=== PATIENT | female | born 1985 | race Caucasian/White ===

== ENCOUNTER 2016-08-21 18:00 | Emergency (ER) | payer OTHER ==
--- NOTE | 2016-08-21 19:33 | ED ORDER SUMMARY ---
..... Patient: YAIR ISABEL OrderSheet [facility]ly [facility] VisitID: [id number] [address] [place] [address] 30y, F Registration Date/Time: 08/21/2016 ORDER SHEET Weight: 99.7 kg (stated) Allergies: No Known Drug Allergy GENERAL ORDERS: GC/Chlamydia (Cervix) (cervix) Urgent (18:37 08/21/2016 HBivens A.R.N.P.) (Ack 18:43 KHoerner) (19:00 MWinterer R.N.) Wet Prep (Cervix) (cervix) Urgent (18:37 08/21/2016 HBivens A.R.N.P.) (Ack 18:43 KHoerner) (19:00 MWinterer R.N.) UA-Culture if indicated Urgent (18:48 08/21/2016 HBivens A.R.N.P.) (Ack 18:53 KHoerner) (19:00 MWinterer R.N.) Urine Urgent (18:48 08/21/2016 HBivens A.R.N.P.) (Ack 18:53 KHoerner) (19:00 MWinterer R.N.) MEDICATION ORDERS: Ceftriaxone IM 250 mg (NOW) (18:38 08/21/2016 HBivens A.R.N.P.) (Ack 18:45 MWinterer R.N.) (19:00 MWinterer R.N.) IV FLUIDS: ORDER SHEET NOTES: [Electronically signed by Farzana Thompson R.N. (19:50 08/21/2016)] [Electronically signed by Iram Owen A.R.N.P. (20:19 08/21/2016)] [Electronically locked/signed by Farzana Thompson R.N. (19:50 08/21/2016)]
--- NOTE | 2016-08-21 19:33 | ED CLINICAL REPORT ---
Clinical Report - Physicians/Mid Levels [facility] [address] [place] [address] 08/21/2016 18:02 Patient: YAIR ISAEBL Time Seen: 18:26; initial patient contact, initial documentation, patient care assumed. Arrived- By private vehicle. Historian- patient. HISTORY OF PRESENT ILLNESS Chief Complaint: POSSIBLY EXPOSED TO SEXUALLY TRANSMITTED DISEASE. This started about 3 days ago. The symptoms are described as mild. Modifying factors. Not worsened by anything. Not relieved by anything. No abdominal pain, pelvic pain, vaginal pain, low back pain or flank pain. No irregular periods, abnormal bleeding, vaginal discharge, vaginal itching or genital lesions. No pain with urination, urinary frequency, urgency of urination or hematuria. Sexually active- unprotected sex and heterosexual. The patient has had possible exposure to sexually transmitted disease. control measures utilized. (says her partner told her Sat night that he was with someone else Saturday night, so she wants full exam, pelvic, meds and testing). Denies current . Similar symptoms previously: None. Recent medical care: Not recently seen/assessed. REVIEW OF SYSTEMS No fever. All systems otherwise negative, except as recorded above. PAST HISTORY See nurses notes. ( SURGERY HX: Cholecystectomy.). SOCIAL HISTORY Light tobacco smoker. No alcohol use or drug use. No recent travel. Is a local resident. FAMILY HISTORY Negative. ADDITIONAL NOTES The nursing notes have been reviewed with agreement regarding the chief complaint, HPI, ROS, PMH and patient medications and allergies. PHYSICAL EXAM Vital Signs: 08/21/2016 18:14 BP: 123/85. HR: 99. RR: 20. O2 saturation: 98%. Temp: 98.2 F. Pain level now: 0/10. Have been reviewed as normal and appear to be correct. Appearance: Alert. Oriented X3. No acute distress. (pt appears under the influence). HEENT: Normal external inspection. ENT: Pharynx normal. Neck: Neck supple. CVS: Heart sounds normal. Respiratory: No respiratory distress. Breath sounds normal. Chest nontender. Abdomen: Soft and nontender. Back: Normal external inspection. : External inspection normal. Speculum exam normal. Bimanual exam normal. Skin: Skin warm and dry. Normal skin color. No rash. Normal skin turgor. Extremities: Extremities nontender. No lower extremity edema. Neuro: Oriented X 3. Mood/affect normal. No motor deficit. No sensory deficit. LABS, X-RAYS, AND EKG Laboratory Tests: UA-Culture if indicated: (ALLAN: 08/21/2016 18:29) ( [facility] 08/21/2016 19:18) Final results Test Result Flag Units (Reference) URINE COLOR YELLOW URINE APPEARANCE TURBID URINE GLUCOSE NEGATIVE (NEGATIVE) URINE BILIRUBIN NEGATIVE (NEGATIVE) URINE KETONE NEGATIVE (NEGATIVE) URINE SPECIFIC GRAVITY >= 1.030 (1.010-1.030) URINE PH 6.0 (5.0-8.0) URINE PROTEIN TRACE (NEGATIVE) URINE UROBILINOGEN 0.2 EU/dL (0.2-1.0) URINE NITRITE NEGATIVE (NEGATIVE) URINE BLOOD NEGATIVE (NEGATIVE) URINE LEUK ESTERASE NEGATIVE (NEGATIVE) URINE RBC NONE SEEN rbc/hpf (0-1) URINE WBC 1-3 wbc/hpf (0-1) URINE EPITHELIAL CELLS >15 EPI/hpf (0-5) URINE BACTERIA FEW (1+) (NONE SEEN) HYALINE CAST 0-1/LPF URINE COMMENT CULT NOT INDICATED URINE CULTURES ARE SET-UP BASED ON THE FOLLOWING CRITERIA:POSITIVE NITRITEPOSITIVE LEUKOCYTE ESTERASEGREATER THAN 10 WHITE BLOOD CELLSMODERATE (2+) OR GREATER BACTERIA Urine: (ALLAN: 08/21/2016 18:29) ( [facility] 08/21/2016 19:06) Final results Test Result Flag Units (Reference) URINE NEGATIVE Wet Prep: (ALLAN: 08/21/2016 18:50) ( [facility] 08/21/2016 19:23) Final results SPECIMEN DESCRIPTION: CERVIX Test Result Flag Units (Reference) WET MOUNT CLUE CELLS:: NONE EPITHELIAL CELLS: FEW -- SOURCE?: CERVIX WHITE BLOOD CELLS: NONE TRICHOMONAS:: NONE -- YEAST:: NONE . PROGRESS AND PROCEDURES Patient counseled in person regarding the patient's stable condition and diagnosis. Differential Diagnosis: Other possible considerations: std - chlamydia, gonorrhea, trich, bv, yeast. Above considerations are based on history and physical exam. Differential diagnosis was discussed with patient. Disposition: Discharged home in good and improved condition (19:33). Condition: good and stable. CLINICAL IMPRESSION (STD Exposure). INSTRUCTIONS No sexual contact until symptoms resolve. Warnings: GENERAL WARNINGS: Return or contact your physician immediately if your condition worsens or changes unexpectedly, if not improving as expected, or if other problems arise. Specifically return if problem worsens. Prescription Medications: Zithromax 500 mg tablets: take 2 orally initially. Total course 1 day. No refills. Follow-up: Follow up with your doctor in about three days as needed. Call for an appointment. Summary of care provided to patient. Understanding of the discharge instructions verbalized by patient. (Electronically signed by Iram Owen A.R.N.P. 08/21/2016 20:19)
--- NOTE | 2016-08-21 19:33 | ED ORDER SUMMARY ---
..... Patient: YAIR ISABEL OrderSheet [facility] VisitID: [id number] [address] [place] [address] 30y, F Registration Date/Time: 08/21/2016 ORDER SHEET Weight: 99.7 kg (stated) Allergies: No Known Drug Allergy GENERAL ORDERS: GC/Chlamydia (Cervix) (cervix) Urgent (18:37 08/21/2016 HBivens A.R.N.P.) (Ack 18:43 KHoerner) (19:00 MWinterer R.N.) Wet Prep (Cervix) (cervix) Urgent (18:37 08/21/2016 HBivens A.R.N.P.) (Ack 18:43 KHoerner) (19:00 MWinterer R.N.) UA-Culture if indicated Urgent (18:48 08/21/2016 HBivens A.R.N.P.) (Ack 18:53 KHoerner) (19:00 MWinterer R.N.) Urine Urgent (18:48 08/21/2016 HBivens A.R.N.P.) (Ack 18:53 KHoerner) (19:00 MWinterer R.N.) MEDICATION ORDERS: Ceftriaxone IM 250 mg (NOW) (18:38 08/21/2016 HBivens A.R.N.P.) (Ack 18:45 MWinterer R.N.) (19:00 MWinterer R.N.) IV FLUIDS: ORDER SHEET NOTES: [Electronically signed by Farzana Thompson R.N. (19:50 08/21/2016)] [Electronically signed by Iram Owen A.R.N.P. (20:19 08/21/2016)] [Electronically locked/signed by Farzana Thompson R.N. (19:50 08/21/2016)]
--- NOTE | 2016-08-21 19:33 | ED NURSING NOTES ---
Clinical Report - Nurses [facility] [address] [place] [address] 08/21/2016 18:02 Patient: YAIR ISABEL TRIAGE Acuity: LEVEL 4. Chief Complaint: VAGINAL DISCHARGE, GENITAL ITCHING/IRRITATION and STD EXPOSURE. Alert. No acute distress. SEPSIS SCREEN: Sepsis Screen. Negative (no infection suspected/documented). --18:20 Daylin Mckeon R.N. 18:14 08/21/16. BP: 123/85. HR: 99. RR: 20. O2 saturation: 98% on room air. Temp: 98.2 F (oral). Pain level now: 0/10. --18:20 Daylin Mckeon R.N. Weight: 99.7 kg stated. Height/Length: 65 inches Per Patient. BMI: 36.6. --18:15 Daylin Mckeon R.N. Medications None. --18:15 Daylin Mckeon R.N. Medication/allergy information source: the patient. --18:20 Daylin Mckeon R.N. Allergies No Known Drug Allergy. --18:15 Daylin Mckeon R.N. History Arrived by private vehicle. Historian: patient. Accompanied by friend. Primary physician (Deja). Onset. (4 days ago). Treatment DEAN OF ADMISSIONS: None. PAST MEDICAL HX: Immunizations: status is unknown. Last normal menstrual period- July 28, 2016. Sexual history - sexually active. Uses control pills. SOCIAL HX: Current every day light tobacco smoker (cigarette)- less than 1/2 a pack per day. No alcohol use or drug use. FALL RISK ASSESSMENT: Fall risk assessment completed. No fall risk identified. NUTRITIONAL RISK ASSESSMENT: The nutritional risk assessment revealed no deficiencies. FUNCTIONAL ASSESSMENT: Functional assessment: no impairments noted. LEARNING NEEDS ASSESSMENT: The learning needs assessment revealed no barriers. SKIN INTEGRITY ASSESSMENT: Skin integrity risk assessment completed. No skin integrity risk identified. --18:20 Daylin Mckeon R.N. ADDITIONAL SURGERIES: Cholecystectomy. --18:16 Daylin Mckeon R.N. Assessment GENERAL / NEURO / PSYCH: Alert. Oriented X 4. Appears in no acute distress. Patient appears calm and cooperative. RESPIRATORY: Respirations not labored. CVS: Capillary refill less than 2 seconds. GI / : Abdomen soft and nontender. SKIN: Mucous membranes are pink. Skin is warm and dry. --18:20 Daylin Mckeon R.N. Interventions ID band on patient. To treatment room. --18:20 Daylin Mckeon R.N. PHYSICAL ASSESSMENT Ambulatory to room. GENERAL / NEURO / PSYCH: Alert. Oriented X 4. Appears in no acute distress. HEENT: Pupils equal, round and reactive to light. No facial asymmetry noted. Mucous membranes are pink. RESPIRATORY: Respirations not labored. CVS: Capillary refill less than 2 seconds. Pulses within normal limits. GI / : Abdomen soft and nontender. SKIN: Skin intact. Skin is warm and dry. Normal skin turgor. --18:24 Daylin Mckeon R.N. NURSING PROGRESS NOTES 18:20 08/21/16. Patient gowned. Two patient identifiers checked. Call light placed in reach. Side rails up x 1. Bed placed in lowest position. Brakes of bed on. Patient ready for evaluation- ED physician and NASCAR RACER notified. --18:20 Daylin Mckeon R.N. 19:04 08/21/16. Care transferred and report given (JERAMIE Dobbins RN). --19:04 Daylin Mckeon R.N. DISPOSITION / DISCHARGE 19:00 08/21/2016 Ceftriaxone IM 250 mg given. Given in the left gluteus dariusz. Allergies verified and confirmed 5 rights. --19:00 Daylin Mckeon R.N. 19:38. Condition at departure: unchanged. No learning barriers present. Discharge instructions provided and reviewed with the patient. Reviewed medication(s) side effects, precautions, dosing and course information. Prescription(s) given to the patient. Patient verbalized understanding. Written instructions provided in Greek. The patient was discharged home and accompanied by computer networker. She left the Emergency Department ambulatory and via private vehicle. Clinical Informatics Spec driving. Medication list reviewed and validated. --19:50 Farzana Thompson R.N. 19:49 08/21/16. BP: deferred. HR: deferred. RR: deferred. O2 saturation: deferred. Temp: deferred. Pain level now deferred. Additional comments: Patient refusal. . --19:50 Farzana Thompson R.N. Locked/Released at 08/21/2016 19:50 by Farzana Thompson R.N.
--- NOTE | 2016-08-21 19:33 | ED NURSING NOTES ---
Clinical Report - Nurses [facility] [address] [place] [address] 08/21/2016 18:02 Patient: YAIR ISABEL TRIAGE Acuity: LEVEL 4. Chief Complaint: VAGINAL DISCHARGE, GENITAL ITCHING/IRRITATION and STD EXPOSURE. Alert. No acute distress. SEPSIS SCREEN: Sepsis Screen. Negative (no infection suspected/documented). --18:20 Daylin Mckeon R.N. 18:14 08/21/16. BP: 123/85. HR: 99. RR: 20. O2 saturation: 98% on room air. Temp: 98.2 F (oral). Pain level now: 0/10. --18:20 Daylin Mckeon R.N. Weight: 99.7 kg stated. Height/Length: 65 inches Per Patient. BMI: 36.6. --18:15 Daylin Mckeon R.N. Medications None. --18:15 Daylin Mckeon R.N. Medication/allergy information source: the patient. --18:20 Daylin Mckeon R.N. Allergies No Known Drug Allergy. --18:15 Daylin Mckeon R.N. History Arrived by private vehicle. Historian: patient. Accompanied by friend. Primary physician (Deja). Onset. (4 days ago). Treatment INTERNET DEVELOPER: None. PAST MEDICAL HX: Immunizations: status is unknown. Last normal menstrual period- July 28, 2016. Sexual history - sexually active. Uses control pills. SOCIAL HX: Current every day light tobacco smoker (cigarette)- less than 1/2 a pack per day. No alcohol use or drug use. FALL RISK ASSESSMENT: Fall risk assessment completed. No fall risk identified. NUTRITIONAL RISK ASSESSMENT: The nutritional risk assessment revealed no deficiencies. FUNCTIONAL ASSESSMENT: Functional assessment: no impairments noted. LEARNING NEEDS ASSESSMENT: The learning needs assessment revealed no barriers. SKIN INTEGRITY ASSESSMENT: Skin integrity risk assessment completed. No skin integrity risk identified. --18:20 Daylin Mckeon R.N. ADDITIONAL SURGERIES: Cholecystectomy. --18:16 Daylin Mckeon R.N. Assessment GENERAL / NEURO / PSYCH: Alert. Oriented X 4. Appears in no acute distress. Patient appears calm and cooperative. RESPIRATORY: Respirations not labored. CVS: Capillary refill less than 2 seconds. GI / : Abdomen soft and nontender. SKIN: Mucous membranes are pink. Skin is warm and dry. --18:20 Daylin Mckeon R.N. Interventions ID band on patient. To treatment room. --18:20 Daylin Mckeon R.N. PHYSICAL ASSESSMENT Ambulatory to room. GENERAL / NEURO / PSYCH: Alert. Oriented X 4. Appears in no acute distress. HEENT: Pupils equal, round and reactive to light. No facial asymmetry noted. Mucous membranes are pink. RESPIRATORY: Respirations not labored. CVS: Capillary refill less than 2 seconds. Pulses within normal limits. GI / : Abdomen soft and nontender. SKIN: Skin intact. Skin is warm and dry. Normal skin turgor. --18:24 Daylin Mckeon R.N. NURSING PROGRESS NOTES 18:20 08/21/16. Patient gowned. Two patient identifiers checked. Call light placed in reach. Side rails up x 1. Bed placed in lowest position. Brakes of bed on. Patient ready for evaluation- ED physician and CENTER DIRECTOR notified. --18:20 Daylin Mckeon R.N. 19:04 08/21/16. Care transferred and report given (JERAMIE Dobbins RN). --19:04 Daylin Mckeon R.N. DISPOSITION / DISCHARGE 19:00 08/21/2016 Ceftriaxone IM 250 mg given. Given in the left gluteus dariusz. Allergies verified and confirmed 5 rights. --19:00 Daylin Mckeon R.N. 19:38. Condition at departure: unchanged. No learning barriers present. Discharge instructions provided and reviewed with the patient. Reviewed medication(s) side effects, precautions, dosing and course information. Prescription(s) given to the patient. Patient verbalized understanding. Written instructions provided in Yoruba. The patient was discharged home and accompanied by snath handle assembler. She left the Emergency Department ambulatory and via private vehicle. Glass Enamel Mixer driving. Medication list reviewed and validated. --19:50 Farzana Thompson R.N. 19:49 08/21/16. BP: deferred. HR: deferred. RR: deferred. O2 saturation: deferred. Temp: deferred. Pain level now deferred. Additional comments: Patient refusal. . --19:50 Farzana Thompson R.N. Locked/Released at 08/21/2016 19:50 by Farzana Thompson R.N.
--- NOTE | 2016-08-21 20:20 | ED DISCHARGE INSTRUCTIONS ---
Patient: YAIR ISABEL General Instructions [facility] VisitID: [id number] [place] [address] 30y, F Registration Date/Time: 08/21/2016 (STD Exposure). INSTRUCTIONS No sexual contact until symptoms resolve. Warnings: GENERAL WARNINGS: Return or contact your physician immediately if your condition worsens or changes unexpectedly, if not improving as expected, or if other problems arise. Specifically return if problem worsens. Prescription Medications: Zithromax 500 mg tablets: take 2 orally initially. Total course 1 day. No refills. Follow-up: Follow up with your doctor in about three days as needed. Call for an appointment. Summary of care provided to patient. Understanding of the discharge instructions verbalized by patient. ADDITIONAL INFORMATION Azithromycin Oral tablet What is this medicine? AZITHROMYCIN (az ith mireya MYE sin) is a macrolide antibiotic. It is used to treat or prevent certain kinds of bacterial infections. It will not work for colds, flu, or other viral infections. How should I use this medicine? Take this medicine by mouth with a full glass of water. Follow the directions on the prescription label. The tablets can be taken with food or on an empty stomach. If the medicine upsets your stomach, take it with food. Take your medicine at regular intervals. Do not take your medicine more often than directed. Take all of your medicine as directed even if you think your are better. Do not skip doses or stop your medicine early. Talk to your shuttle van driver regarding the use of this medicine in children. Special care may be needed. What side effects may I notice from receiving this medicine? Side effects that you should report to your doctor or health customer care manager as soon as possible: allergic reactions like skin rash, itching or hives, swelling of the face, lips, or tongue confusion, nightmares or hallucinations dark urine difficulty breathing hearing loss irregular heartbeat or chest pain pain or difficulty passing urine redness, blistering, peeling or loosening of the skin, including inside the mouth white patches or sores in the mouth yellowing of the eyes or skin Side effects that usually do not require medical attention (report to your doctor or health customer care manager if they continue or are bothersome): diarrhea dizziness, drowsiness headache stomach upset or vomiting tooth discoloration vaginal irritation What may interact with this medicine? Do not take this medicine with any of the following medications: lincomycin This medicine may also interact with the following medications: amiodarone antacids cyclosporine digoxin magnesium nelfinavir phenytoin warfarin What if I miss a dose? If you miss a dose, take it as soon as you can. If it is almost time for your next dose, take only that dose. Do not take double or extra doses. Where should I keep my medicine? Keep out of the reach of children. Store at room temperature between 15 and 30 degrees C (59 and 86 degrees F). Throw away any unused medicine after the expiration date. What should I tell my health care provider before I take this medicine? They need to know if you have any of these conditions: kidney disease liver disease irregular heartbeat or heart disease an unusual or allergic reaction to azithromycin, erythromycin, other macrolide antibiotics, foods, dyes, or preservatives or trying to get breast-feeding What should I watch for while using this medicine? Tell your doctor or health customer care manager if your symptoms do not improve. Do not treat diarrhea with over the counter products. Contact your doctor if you have diarrhea that lasts more than 2 days or if it is severe and watery. This medicine can make you more sensitive to the sun. Keep out of the sun. If you cannot avoid being in the sun, wear protective clothing and use sunscreen. Do not use sun lamps or tanning beds/booths. You have been given the following additional information: Azithromycin Oral tablet (Electronically signed by Iram Owen A.R.N.P. 08/21/2016 20:19)
--- NOTE | 2016-08-21 20:20 | ED MAR SUMMARY ---
..... Medication Administration Record [facility] [address] [place] [address] Patient: YAIR ISABEL Visit ID: [id number] 30y, F Weight: 99.7 kg Height/Length: 65 in BMI: 36.6 ALLERGIES: No Known Drug Allergy Given 19:00 08/21/2016 Daylin Mckeon R.N. Medication Administered: CEFTRIAXONE [IM], Dose: 250 mg IM. Medication Ordered: Ceftriaxone IM 250 mg (NOW).
--- NOTE | 2016-08-21 20:20 | ED MED RECONCILIATION SUMMARY ---
Patient: YAIR ISABEL Medication Reconciliation Report [facility] VisitID: [id number] [address] [place] [address] 30y, F Registration Date/Time: 08/21/2016 Weight: 99.7 kg Height/Length: 65 in. BMI: 36.6 ALLERGIES: No Known Drug Allergy The patient's Home Medications are listed below: NONE. The source(s) of the original Home Medication information: patient The following Medications were given to the patient in the Emergency Department: Ceftriaxone [IM] IM 250 mg, administered: 08/21/2016 7:00:00 PM The following Medications were prescribed to the patient: Zithromax 500 mg tablets: take 2 orally initially. Total course 1 day. No refills. -- Iram Owen A.R.N.P.
--- NOTE | 2016-08-21 20:20 | ED MAR SUMMARY ---
..... Medication Administration Record [facility] [address] [place] [address] Patient: YAIR ISABEL Visit ID: [id number] 30y, F Weight: 99.7 kg Height/Length: 65 in BMI: 36.6 ALLERGIES: No Known Drug Allergy Given 19:00 08/21/2016 Daylin Mckeon R.N. Medication Administered: CEFTRIAXONE [IM], Dose: 250 mg IM. Medication Ordered: Ceftriaxone IM 250 mg (NOW).
--- NOTE | 2016-08-21 20:20 | ED DISCHARGE INSTRUCTIONS ---
Patient: YAIR ISABEL General Instructions [facility] VisitID: [id number] [place] [address] 30y, F Registration Date/Time: 08/21/2016 (STD Exposure). INSTRUCTIONS No sexual contact until symptoms resolve. Warnings: GENERAL WARNINGS: Return or contact your physician immediately if your condition worsens or changes unexpectedly, if not improving as expected, or if other problems arise. Specifically return if problem worsens. Prescription Medications: Zithromax 500 mg tablets: take 2 orally initially. Total course 1 day. No refills. Follow-up: Follow up with your doctor in about three days as needed. Call for an appointment. Summary of care provided to patient. Understanding of the discharge instructions verbalized by patient. ADDITIONAL INFORMATION Azithromycin Oral tablet What is this medicine? AZITHROMYCIN (az ith mireya MYE sin) is a macrolide antibiotic. It is used to treat or prevent certain kinds of bacterial infections. It will not work for colds, flu, or other viral infections. How should I use this medicine? Take this medicine by mouth with a full glass of water. Follow the directions on the prescription label. The tablets can be taken with food or on an empty stomach. If the medicine upsets your stomach, take it with food. Take your medicine at regular intervals. Do not take your medicine more often than directed. Take all of your medicine as directed even if you think your are better. Do not skip doses or stop your medicine early. Talk to your fire behavior analyst regarding the use of this medicine in children. Special care may be needed. What side effects may I notice from receiving this medicine? Side effects that you should report to your doctor or health care management assistant as soon as possible: allergic reactions like skin rash, itching or hives, swelling of the face, lips, or tongue confusion, nightmares or hallucinations dark urine difficulty breathing hearing loss irregular heartbeat or chest pain pain or difficulty passing urine redness, blistering, peeling or loosening of the skin, including inside the mouth white patches or sores in the mouth yellowing of the eyes or skin Side effects that usually do not require medical attention (report to your doctor or health care management assistant if they continue or are bothersome): diarrhea dizziness, drowsiness headache stomach upset or vomiting tooth discoloration vaginal irritation What may interact with this medicine? Do not take this medicine with any of the following medications: lincomycin This medicine may also interact with the following medications: amiodarone antacids cyclosporine digoxin magnesium nelfinavir phenytoin warfarin What if I miss a dose? If you miss a dose, take it as soon as you can. If it is almost time for your next dose, take only that dose. Do not take double or extra doses. Where should I keep my medicine? Keep out of the reach of children. Store at room temperature between 15 and 30 degrees C (59 and 86 degrees F). Throw away any unused medicine after the expiration date. What should I tell my health care provider before I take this medicine? They need to know if you have any of these conditions: kidney disease liver disease irregular heartbeat or heart disease an unusual or allergic reaction to azithromycin, erythromycin, other macrolide antibiotics, foods, dyes, or preservatives or trying to get breast-feeding What should I watch for while using this medicine? Tell your doctor or health care management assistant if your symptoms do not improve. Do not treat diarrhea with over the counter products. Contact your doctor if you have diarrhea that lasts more than 2 days or if it is severe and watery. This medicine can make you more sensitive to the sun. Keep out of the sun. If you cannot avoid being in the sun, wear protective clothing and use sunscreen. Do not use sun lamps or tanning beds/booths. You have been given the following additional information: Azithromycin Oral tablet (Electronically signed by Iram Owen A.R.N.P. 08/21/2016 20:19)
--- NOTE | 2016-08-21 20:20 | ED MED RECONCILIATION SUMMARY ---
Patient: YAIR ISABEL Medication Reconciliation Report [facility] VisitID: [id number] [address] [place] [address] 30y, F Registration Date/Time: 08/21/2016 Weight: 99.7 kg Height/Length: 65 in. BMI: 36.6 ALLERGIES: No Known Drug Allergy The patient's Home Medications are listed below: NONE. The source(s) of the original Home Medication information: patient The following Medications were given to the patient in the Emergency Department: Ceftriaxone [IM] IM 250 mg, administered: 08/21/2016 7:00:00 PM The following Medications were prescribed to the patient: Zithromax 500 mg tablets: take 2 orally initially. Total course 1 day. No refills. -- Iram Owen A.R.N.P.
== END 2016-08-21 19:38 | disposition home or self-care (01) ==
LOC: ED SRH 18:00
DX: Z20.2 Contact with and (suspected) exposure to infections with a predominantly sexual mode of transmission (principal); Z72.0 Tobacco use
CPT/HCPCS: 90004; 90195; 91227; 91228; 93070

== ENCOUNTER 2016-09-22 19:45 | Emergency (ER) | payer OTHER ==
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
--- NOTE | 2016-09-22 23:51 | ED MAR SUMMARY ---
..... Medication Administration Record [facility] [address] [place], [place] [id number] Patient: YAIR ISABEL Visit ID: [id number] 31y, F Weight: 99.7 kg Height/Length: 64 in BMI: 37.8 ALLERGIES: No Known Drug Allergy
--- NOTE | 2016-09-22 23:51 | ED MED RECONCILIATION SUMMARY ---
Patient: YAIR ISABEL Medication Reconciliation Report [facility] VisitID: [id number] [address] [place] [address] 31y, F Registration Date/Time: 09/22/2016 Weight: 99.7 kg Height/Length: 64 in. BMI: 37.8 ALLERGIES: No Known Drug Allergy The patient's Home Medications are listed below: THE FOLLOWING MEDICATIONS NEED TO BE RECONCILED: Methocarbamol Oral (500 mg) 1 tablet, 3x a day Naproxen Oral (250 mg) 1 tablet, 2x a day Vicodin Oral (5-300 mg) 1 tablet, 4x a day The source(s) of the original Home Medication information: Not obtained. The following Medications were given to the patient in the Emergency Department: None. The following Medications were prescribed to the patient: Toradol 10 mg tablets: Take 1 tablet orally every 6 hours as needed. Dispense fifteen (15). No refills. Substitution is permissible. -- Iram Owen A.R.N.P.
--- NOTE | 2016-09-22 23:51 | ED MAR SUMMARY ---
..... Medication Administration Record [facility] [address] [place], [place] [id number] Patient: YAIR ISABEL Visit ID: [id number] 31y, F Weight: 99.7 kg Height/Length: 64 in BMI: 37.8 ALLERGIES: No Known Drug Allergy
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
--- NOTE | 2016-09-22 23:51 | ED MED RECONCILIATION SUMMARY ---
Patient: YAIR ISABEL Medication Reconciliation Report [facility] VisitID: [id number] [place] [address] 31y, F Registration Date/Time: 09/22/2016 Weight: 99.7 kg Height/Length: 64 in. BMI: 37.8 ALLERGIES: No Known Drug Allergy The patient's Home Medications are listed below: THE FOLLOWING MEDICATIONS NEED TO BE RECONCILED: Methocarbamol Oral (500 mg) 1 tablet, 3x a day Naproxen Oral (250 mg) 1 tablet, 2x a day Vicodin Oral (5-300 mg) 1 tablet, 4x a day The source(s) of the original Home Medication information: Not obtained. The following Medications were given to the patient in the Emergency Department: None. The following Medications were prescribed to the patient: Toradol 10 mg tablets: Take 1 tablet orally every 6 hours as needed. Dispense fifteen (15). No refills. Substitution is permissible. -- Iram Owen A.R.N.P.
== END 2016-09-22 20:30 | disposition home or self-care (01) ==
LOC: ED SRH 19:45
DX: S29.011A Strain of muscle and tendon of front wall of thorax, initial encounter (principal); V53.6XXA Passenger in pick-up truck or van injured in collision with car, pick-up truck or van in traffic accident, initial encounter; Y93.9 Activity, unspecified; Y99.9 Unspecified external cause status; Y92.9 Unspecified place or not applicable; Z72.0 Tobacco use; Z79.899 Other long term (current) drug therapy